=== PATIENT | male | born 1960 | race Caucasian/White ===

== ENCOUNTER 2017-06-06 02:39 | Emergency (ER) | payer MEDICARE ==
--- OUTSIDE RECORDS SUMMARY | 2017-06-06 02:42 | XMS | Clinical Summary ---
:1960 Author Organization [facility] Address [address] [place] [address] Phone Care Team Providers Name Role Phone , Primary Care Provider Unavailable Allergies Not on File Current Medications Not on file Active Problems Not on file Social History Tobacco Use Types Packs/Day Years Used Date Never Assessed Sex Assigned at Date Recorded Not on file Last Filed Vital Signs Not on file Plan of Treatment Not on file Results Not on filefrom Last 3 Months
[2017-06-06] MEDS ORDERED: Acetaminophen 500 MG TAB ONE (03:04)
--- NOTE | 2017-06-06 08:07 | CT ---
PRELIMINARY REPORT/[facility]/EMERGENCY AFTER HOURS PROCEDURE: EXAM: CT Head Without Intravenous Contrast EXAM DATE/TIME: Exam ordered 06/06/2017 3:10 AM CLINICAL HISTORY: 57 years old, male; Injury or trauma; Fall; Initial encounter; Abrasion; Not specified; Patient HX: Er valarie; M 57 presents to ed following a fall at 0115 while he was trying to get into bed, states t hat he hit the top of his head and denies loc. States that his back and head both hurt. H/o copd, bi polar and HTN. Not on blood thinners. Nkma. Denies any recent illnesses. TECHNIQUE: Axial computed tomography images of the head/brain without intravenous contrast. COMPARISON: No relevant prior studies available. FINDINGS: Brain: Normal. No hemorrhage. No significant white matter disease. No edema. Ventricles: Normal. No ventriculomegaly. Bones/joints: Normal. No acute fracture. Soft tissues: Normal. Sinuses: Unremarkable as visualized. No acute sinusitis. Mastoid air cells: Unremarkable as visualized. No mastoid effusion. IMPRESSION: No acute intracranial hemorrhage. Thank you for allowing us to participate in the care of your patient. Dictated and Authenticated by: Jose Sexton MD 06/06/2017 3:35 AM Central Time ([place] \T\ Mark) FINAL REPORT CT BRAIN WITHOUT CONTRAST: I agree with the preliminary report given by Dr. Jose Sexton of [facility]. Comparison is made with the exam of 11/29/16. No CT evidence of acute intracranial process is identified. POS: [facility]
== END 2017-06-06 03:54 | disposition home or self-care (01) ==
LOC: ERS 02:39
DX: S00.03XA Contusion of scalp, initial encounter (principal); M81.0 Age-related osteoporosis without current pathological fracture; E78.5 Hyperlipidemia, unspecified; J44.9 Chronic obstructive pulmonary disease, unspecified; I10 Essential (primary) hypertension; F41.9 Anxiety disorder, unspecified; F25.0 Schizoaffective disorder, bipolar type; F17.210 Nicotine dependence, cigarettes, uncomplicated; W18.09XA Striking against other object with subsequent fall, initial encounter
CPT/HCPCS: 70450

== ENCOUNTER 2017-10-09 23:45 | Emergency (ER) | payer MEDICARE ==
[2017-10-09] MEDS ORDERED: Ibuprofen 800 MG TAB ONE (23:54)
--- NOTE | 2017-10-10 07:57 | RAD ---
RIGHT HAND 3 VIEWS: Date: 10/09/17 HISTORY: Trauma, right hand pain. FINDINGS/IMPRESSION: Comparison made with exam of 02/22/11. An old, healed fracture of the proximal phalanx of the fifth digit is seen. No acute fracture or disl ocation is identified. POS: [facility]
== END 2017-10-10 00:49 | disposition home or self-care (01) ==
LOC: ERS 23:45
DX: S60.221A Contusion of right hand, initial encounter (principal); I10 Essential (primary) hypertension; E78.5 Hyperlipidemia, unspecified; J44.9 Chronic obstructive pulmonary disease, unspecified; F41.9 Anxiety disorder, unspecified; F31.9 Bipolar disorder, unspecified; F25.9 Schizoaffective disorder, unspecified; F17.210 Nicotine dependence, cigarettes, uncomplicated; W01.0XXA Fall on same level from slipping, tripping and stumbling without subsequent striking against object, initial encounter

== ENCOUNTER 2017-11-12 10:40 | Observation (INO) | payer MEDICARE ==
[~2017-11-12 10:40] MED LIST: ISOVUE-370 76%-LOCM 1 ML ONE
[2017-11-12 12:11] LABS: #Eosinphils 0.5 thou/uL (0.0-0.7); #Lymphocytes 1.3 thou/uL (1.20-3.40); %Basophils 0.1 % (0.0-1.0); %Eosinophils 3.6 % (0.0-10.0); %Neutrophils 78.3 % (42.0-75.0); Hemoglobin 12.6 g/dL (14.0-18.0); Mean Corpuscular HGB CONC 32.8 g/dL (32.0-36.0); Mean Corpuscular Hemoglobin 28.6 pg (27.0-31.0); Mean Corpuscular Volume 87.2 fl (80.0-94.0); Mean Platelet Volume 8.4 fL (7.4-10.4); Platelet Count 211 thou/uL (130-400); RBC Distribution Width 14.3 % (11.5-14.5); Red Blood Cell (RBC) Count 4.41 mill/uL (4.70-6.10); White Blood Cell (WBC) Count 12.7 thou/uL (4.8-10.8)
[2017-11-12 12:34] LABS: ALT (SGPT) 51 U/L (8-55); AST (SGOT) 83 U/L (5-34); Albumin 3.9 g/dL (3.5-5.0); Alkaline Phosphatase 108 U/L (40-150); Anion Gap 12 mmol/L (10-20); BUN (Urea Nitrogen) 13 mg/dL (8.4-25.7); Bilirubin, Total 0.3 mg/dL (0.2-1.2); Calc. Creatinine Clearance 0 mL/min (70-130); Calcium 9.1 mg/dL (7.8-10.44); Carbon Dioxide 19 mmol/L (22-29); Chloride 109 mmol/L (98-107); Estimated GFR-MDRD 51; Globulin 3.4 g/dL (2.4-3.5); Glucose 75 mg/dL (70-105); Protein, Total 7.3 g/dL (6.0-8.3); Sodium 135 mmol/L (136-145)
[2017-11-12 12:36] LABS: CKMB 6.1 ng/mL (0-6.6); Troponin I Less than 0.010 ng/mL (< 0.028)
--- NOTE | 2017-11-12 13:06 | CT ---
CT ABDOMEN AND PELVIS: 11/12/2017 PROVIDED CLINICAL HISTORY: Abdominal pain. COMPARISON: 12/02/2015 FINDINGS: The visualized lung bases are free of significant opacity. The liver, spleen, pancreas, kidneys, and adrenal glands demonstrate an unremarkable CT appearance, w ith the exception of bilateral nephrolithiasis without obstruction, appearing similar to the prior st udy. The right renal pelvic calculus on the prior study appears to have migrated to the inferior yara e of the right kidney. There is conspicuous colonic fecal retention in the right colon. There is no evidence for bowel obst ruction. There is no inflammatory fat stranding, free fluid, or free air apparent. The appendix jean ears normal. Vascular calcifications are noted. Nonspecific conspicuous distention of the urinary bladder. Post surgical changes of the left pelvis are again noted. The osseous structures demonstrate no conc erning lytic or blastic lesions. IMPRESSION: 1. Bilateral nonobstructing nephrolithiasis. 2. Findings suggestive of constipation. POS: [facility]
--- NOTE | 2017-11-12 13:35 | RAD ---
PORTABLE CHEST: HISTORY: Weakness. Falling. COMPARISON: Chest film from 01/07/2016. FINDINGS: There is hazy density in the left mid lung and in the left lower lung, which could represent changes of early inflammatory infiltrate. These densities are new when compared to a prior exam. There is evidence of an old rib fracture involving the lateral left seventh rib, which is a stable fi nding. Probable old fracture involving the posterolateral left sixth rib as well. No acute fracture identified. IMPRESSION: Questionable areas of new infiltrate in the left lung. Correlate clinically regarding pneumonia, and recommend followup. POS: [facility]
[2017-11-12] MEDS ORDERED: Ketorolac Tromethamine 30 MG/ML VIAL ONE (14:23)
[2017-11-12 14:43] LABS: Bilirubin Negative (Negative); Blood, Urine Small (Negative); Clarity CLEAR (Clear); Glucose, Urine (Dipstick) Negative (Negative); Leukocyte Negative (Negative); Nitrite Negative (Negative); Protein, Urine (Dipstick) Negative (Neg-Trace); Specific Gravity, Urine 1.027 (1.002-1.036); pH, Urine 6.5 (5.0-9.0)
[2017-11-12 14:45] LABS: Bacteria/HPF None Seen HPF (None Seen); Hyaline Casts/LPF 0-3 HYALINE CAST LPF (0-3 Hyaline); Squamous Epithelial 0-3 HPF (0-3); WBC/HPF 0-3 HPF (0-3)
[2017-11-12 14:51] LABS: Cocaine Metabolite Screen Detected (NotDetected); Medtox Reader # READER 1; Phencyclidine (PCP) Not Detected (NotDetected); THC/Cannabinoid Screen Not Detected (NotDetected)
[2017-11-12 14:52] LABS: Amphetamine Not Detected (NotDetected); Barbiturates Screen Not Detected (NotDetected); Benzodiazepine Screen Detected (NotDetected); Medtox Control Line Valid? VALID (VALID); Methadone Not Detected (NotDetected); Methamphetamine Not Detected (NotDetected); Opiate Screen Not Detected (NotDetected); Oxycodone Screen Not Detected (NotDetected); Tricyclic Screen Detected (NotDetected)
--- NOTE | 2017-11-12 14:54 | CT ---
NONCONTRAST HEAD CT: Date: 11/12/17 HISTORY: Multiple falls over the past 3 days. COMPARISON: 06/06/17. TECHNIQUE: Noncontrast head CT is performed from skull base to skull vertex. FINDINGS: There is residual contrast in the intracranial arteries due to recent contrast administration. This l imits evaluation for subarachnoid hemorrhage. No obvious extra-axial hematoma. No definite parenchyma l hemorrhage. No midline shift. Basilar cisterns are patent. Age-appropriate atrophy. Cortical herbert-white matter differentiation is preserved. Ventricles and sulci are patent and symmetric. Adequate aeration of the sinuses and mastoid air cells. Calvarium is intact. IMPRESSION: No intracranial post-traumatic sequelae. POS: [facility]
[2017-11-12] MEDS ORDERED: Ondansetron HCl/PF 4 MG/2 ML Vial IVP PRN (18:29)
[2017-11-12] MEDS ORDERED: Ondansetron ODT 4 MG TAB SL PRN (18:29)
[2017-11-12] MEDS ORDERED: Acetaminophen 325 MG TAB PO PRN (18:29)
[2017-11-12 19:23] LABS: #Eosinphils 0.3 thou/uL (0.0-0.7); #Lymphocytes 1.7 thou/uL (1.20-3.40); #Neutrophils 7.1 thou/uL (1.40-6.50); %Basophils 0.5 % (0.0-1.0); %Eosinophils 3.1 % (0.0-10.0); %Lymphocytes 16.6 % (21.0-51.0); %Monocytes 9.9 % (0.0-10.0); Hemoglobin 13.3 g/dL (14.0-18.0); Mean Corpuscular HGB CONC 31.9 g/dL (32.0-36.0); Mean Corpuscular Hemoglobin 28.4 pg (27.0-31.0); Mean Platelet Volume 8.5 fL (7.4-10.4); Platelet Count 221 thou/uL (130-400); RBC Distribution Width 14.4 % (11.5-14.5); Red Blood Cell (RBC) Count 4.69 mill/uL (4.70-6.10); White Blood Cell (WBC) Count 10.1 thou/uL (4.8-10.8)
[2017-11-12 19:26] VITALS: BMI 28.3
[2017-11-12] MEDS: Sodium Chloride 0.9% 1,000 ML IV SCH (19:45)
[2017-11-12] MEDS: Ketorolac Tromethamine 30 MG/ML VIAL IVP PRN (19:45)
[2017-11-12 19:47] LABS: ALT (SGPT) 53 U/L (8-55); AST (SGOT) 91 U/L (5-34); Albumin 4.1 g/dL (3.5-5.0); Alkaline Phosphatase 120 U/L (40-150); Anion Gap 11 mmol/L (10-20); BUN (Urea Nitrogen) 10 mg/dL (8.4-25.7); Bilirubin, Total 0.4 mg/dL (0.2-1.2); Calc. Creatinine Clearance 66 mL/min (70-130); Calcium 8.9 mg/dL (7.8-10.44); Carbon Dioxide 20 mmol/L (22-29); Chloride 111 mmol/L (98-107); Estimated GFR-MDRD 55; Globulin 3.5 g/dL (2.4-3.5); Glucose 69 mg/dL (70-105); Potassium 4.2 mmol/L (3.5-5.1); Protein, Total 7.6 g/dL (6.0-8.3); Sodium 138 mmol/L (136-145)
--- NOTE | 2017-11-12 21:59 | HP ---
MARC Morris dictating H&P for Tj Conroy MD. REASON FOR ADMISSION: Weakness and back pain. HISTORY OF PRESENT ILLNESS: This is a pleasant 57-year-old gentleman with a history of drug abuse, p resents with episode of altered level of consciousness, back pain, and lower extremity weakness. All of his tests including brain CT, abdominal and pelvis CT, and chest x-ray were all normal. A urine drug screen however showed cocaine. It was also positive for benzodiazepine; however, he does not ge t that from our office ? The patient denies any chest, arm, or back pain. He also denies any PND, orthopnea, or palpitations. He is known to have a history of back pain and has had episodes where he has been admitted to the ostal where he could not walk; however, within 24 hours, he would miraculously walk again. PAST MEDICAL HISTORY: 1. Chronic back pain. 2. History of mental disorder being in [facility] before. 3. Polysubstance abuse. 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 5. History of kidney stones. 6. COPD. 7. 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 9. Hyperlipidemia. 10. Hypertension. 11. History of anxiety and bipolar disorder. PAST SURGICAL HISTORY: 1. Left shoulder surgery in the past. 2. Left toe and left testicular tumors removed in the past. 3. Pelvic and sacral fractures. 4. Lithotripsy x2. SOCIAL HISTORY: He is . He has a history of crack cocaine in the past. Occasional alcohol u se. He is a former smoke. He is unemployed. He is . He is disabled. FAMILY HISTORY: Noncontributory. REVIEW OF SYSTEMS: General: Admits to weakness and fatigue. No fever or chills. HEENT: No diplop ia, amaurosis fugax, tinnitus, sore throat, or hoarseness. Cardiovascular: No chest, arm, or back p ain. Pulmonary: No cough or hemoptysis. Gastrointestinal: No GI bleed, constipation, or diarrhea. Genitourinary: No dysuria, nocturia, oliguria, or polyuria. Endocrine: No polyphagia, polydipsia , or heat or cold intolerance. Musculoskeletal: Admits to arthralgias, back pain, and lower extremi ty weakness. Unable to walk. No lupus or myopathy. Neurologic: No history of TIA or seizure. All other systems are negative. PHYSICAL EXAMINATION: GENERAL: Pleasant gentleman who appears to be in no acute distress. He is edentulous. VITAL SIGNS: Stable. NECK: Supple with no increased JVP or carotid bruit. Carotid had good upstroke with no thyromegaly. COR: Regular rate and rhythm. CHEST: Symmetrical. Clear to auscultation and percussion. ABDOMEN: Soft and nontender with normoactive bowel sounds. No bruit or organomegaly. EXTREMITIES: No edema or cyanosis. Palpable pedal pulses. SKIN: There is no evidence of ulcer, lesion, or rash. NEUROLOGIC: He is awake; alert; and oriented to person, place, and time. He does have good upper extremity strength; however, on his lower extremity, he lifts both of his leg s up with facial grimacing. LABORATORY DATA: Showed a CBC to have a white blood cell 12.7, H&H of 12.6 and 38.5. His sodium is 135, creatinine 1.42. His urine is unremarkable. His chest x-ray is possible infiltrate. ASSESSMENT: 1. Abnormal chest x-ray; however, has no fever. His lungs were clear and has no upper respiratory s ymptoms. 2. History of cocaine abuse. 3. Chronic back pain. 4. Lower extremity weakness. 5. Bipolar. 6. Multiple medical problems. PLAN: 1. We will keep on observation and as Physical Therapy to see the patient in consultation. 2. We will give Toradol 30 mg IV q.6 hours p.r.n. pain. 3. We will check routine vital signs. 4. Put on controlled fat diet. 5. We will find home medications and resume accordingly. 6. Follow up with CBC, CMP, and chest x-ray in the morning. We will not give any antibiotics right now as the patient has no symptoms; however, we will confirm tomorrow with testing.
[2017-11-13] MEDS: Ketorolac Tromethamine 30 MG/ML VIAL IVP PRN ×4 (01:59→20:32)
[2017-11-13] MEDS: Sodium Chloride 0.9% 1,000 ML IV SCH (01:59)
--- NOTE | 2017-11-13 12:07 | RAD ---
RIGHT HIP 2 VIEWS: HISTORY: Inability to ambulate. FINDINGS/IMPRESSION: There are mild degenerative changes in the right hip joint. No fracture, dislocation, or bony destru ction is seen. There is an old fracture involving the left inferior pubic ramus and postop changes i n the left pubis, left acetabulum, and the left SI region. POS: [facility]
--- NOTE | 2017-11-13 12:11 | RAD ---
LEFT HIP TWO VIEWS: History: Hip pain. FINDINGS: There are post-operative changes of the hip. There are plates and screws fixing an old fracture along the central acetabulum left superior pubic ramus in place. There is also an old healed inferior pubi c rami fracture. Surgical screws cross the left SI joint. The joint space itself is relatively well p reserved without significant arthritic change. IMPRESSION: Suggestion of some bony demineralization with post-operative changes of the left side of the pelvis. No definite acute process. No significant joint space narrowing. POS: [facility]
--- NOTE | 2017-11-13 12:34 | RAD ---
CHEST TWO VIEWS: HISTORY: Followup of a left lung infiltrate. COMPARISON: 11/12/2017 FINDINGS: Heart size is within normal limits. A left perihilar and upper lobe interstitial infiltrate is simil ar to the prior exam. The left lower lobe parenchymal changes appear to have resolved. The right ayaan ng is clear. IMPRESSION: Persistent left perihilar infiltrate, fairly similar, considering differences in technique. POS: [facility]
--- NOTE | 2017-11-13 19:22 | CT ---
CT LUMBAR SPINE WITHOUT CONTRAST 11/13/17 HISTORY: Evaluate for spinal stenosis. Leg pain for multiple years. COMPARISON: Lumbar spine radiographs from 2016. FINDINGS: There is a type IIb lumbosacral transitional vertebra. This will be termed L5 for the purposes of thi s exam. There are two threaded cannulated screws through the left SI joint through S1. No acute fract ure or malalignment. The neural foramina and spinal canal are patent. No spinal canal narrowing. No significant neural for aminal narrowing. Mild vascular calcifications of the aorta. There are bilateral renal calculi. The paraspinal musculat ure is symmetric. Adrenal glands are unremarkable. IMPRESSION: 1. 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 2. Satisfactory appearance of two threaded cannulated screws through the left SI joint. 3. Incomplete evaluation of hardware along the left superior pubic ramus seen on the rules examiner radio graph extending to the anterior column. 4. Bilateral renal calculi. POS: [facility]
--- NOTE | 2017-11-14 08:36 | PRG ---
DATE OF SERVICE: 11/14/2017 SUBJECTIVE: The patient had a good night; however, yesterday he did not do very good with therapy. He is now coughing. He does not have any fever; however, his chest x-ray did show an infiltrate. PHYSICAL EXAMINATION: GENERAL: Upon evaluation is awake, alert, and oriented to person, place and time. VITAL SIGNS: Blood pressure 140/70, pulse 90, respiration 20. He is afebrile. NECK: Supple. No JVD or carotid bruit. Carotid upstroke, no thyromegaly. COR: Regular rate and rhythm. CHEST: He did have some upper lobe rhonchi with left lower lobe crackles. ABDOMEN: Soft, nontender with normoactive bowel sounds. There is no bruit or organomegaly. EXTREMITIES: No edema or cyanosis. He had palpable pedal pulses. SKIN: There is no evidence of ulcer, lesion or rash. NEUROLOGIC: He is awake, alert, and oriented to person, place and time; however, he does have a good upper extremity strength, but he does have poor lower extremity strength. ASSESSMENT: 1. Possible pneumonia. 2. Back pain and hip pain with no significant abnormalities based on his x-rays; however. 3. He was found to have incidental kidney stones which could explain for I guess his back pain. 4. History of bipolar. 5. Anxiety. 6. History of cocaine use. 7. Deconditioning. PLAN: We will start antibiotics for pneumonia. We will also do breathing treatments every 4 hours. We will also check a followup with CBC and CMP in the morning. We will have embedded case manager to work on rehab as that was suggested by physical therapy. We will also have Urology see the patient for his k bhanuney stone to see if that would be the cause of his back pain.
[2017-11-14] MEDS: Ketorolac Tromethamine 30 MG/ML VIAL IVP PRN ×2 (09:20→15:24)
[2017-11-14] MEDS: cefTRIAXone\\ROCEPHIN 1 GM, Syringe 0.4 ML in Sterile Water 9.6 ML SLOW IVP SCH (10:40)
[2017-11-14] MEDS: Albuterol Sulfate 2.5 mg/3 ml Neb NEB SCH ×4 (11:07→22:55)
--- NOTE | 2017-11-14 17:20 | CON ---
DATE OF CONSULTATION: 11/14/2017 NEUROLOGY CONSULTATION CONSULTING PHYSICIAN: Tj Conroy M.D. IMPRESSION: Left calf atrophy and subjective weakness with relatively brisk reflexes suggesting the possibility of motor neuron disease. PLAN: The patient can be discharged to be seen as an outpatient in the office for EMG and nerve cond uction studies. HISTORY OF PRESENT ILLNESS: Mr. Polanco is a 57-year-old man with a past history of hypertension, hyper lipidemia, low back pain and cocaine abuse. He came in with a 3-week history of increased weakness i n his left leg. This made it difficult for him to walk. He reportedly fell on several occasions and could get up. There is no associated tingling or numbness in the left leg. He has not noticed any loss of bowel or bladder control. He does not note any weakness on the right. He did not really jean reciate any weakness in the upper extremities or difficulty swallowing or talking. He had a CT scan of the brain done, which was unremarkable. CT of the lumbar spine did not show any significant felipe inal or central canal stenosis. His lab work was otherwise unremarkable. PAST MEDICAL HISTORY: Otherwise, negative. FAMILY HISTORY: Noncontributory. SOCIAL HISTORY: Positive for cocaine use. MEDICATION LIST: Reviewed. REVIEW OF SYSTEMS: Also positive for muscle cramping. PHYSICAL EXAMINATION: GENERAL: He is a thin, middle-aged man who appears older than his age. HEENT: Pupils are equal and reactive. Conjunctivae are clear. Oropharynx is clear. NECK: Supple. EXTREMITIES: No cyanosis, clubbing or edema. NEUROLOGIC: He is alert and cooperative. Speech is fluent and clear. Cranial nerves appear to be i ntact. No tongue fasciculation was noted. Motor exam showed some patchy weakness in the upper extre mities involving the left deltoid and right biceps. The lower extremities were notable for calf atro phy and some questionable fasciculations. He had difficulty with plantar flexion on the left. Sensa tion was intact. Reflexes were 3+ at the knees and 2+ at the ankles. Plantar responses appear to be downgoing. He could bring himself to a standing position and maintain his balance. Cerebellar test ing showed normal [id number] and rapid alternating movements. IMAGING: Reviewed. SUMMARY: This is a middle-aged man with some gradual progressive weakness in his left leg that is mo st consistent with possible upper motor neuron problems. His CT does not reveal any evidence of a st roke. I would like to proceed with further testing as an outpatient to try to get to the etiology.
[2017-11-15] MEDS: Ketorolac Tromethamine 30 MG/ML VIAL IVP PRN (00:21)
[2017-11-15] MEDS: Albuterol Sulfate 2.5 mg/3 ml Neb NEB SCH ×5 (02:42→18:31)
[2017-11-15 04:30] LABS: #Eosinphils 0.4 thou/uL (0.0-0.7); #Lymphocytes 1.5 thou/uL (1.20-3.40); #Monocytes 0.9 thou/uL (0.11-0.59); #Neutrophils 5.6 thou/uL (1.40-6.50); %Basophils 0.1 % (0.0-1.0); %Eosinophils 4.4 % (0.0-10.0); %Lymphocytes 18.2 % (21.0-51.0); %Monocytes 10.8 % (0.0-10.0); %Neutrophils 66.6 % (42.0-75.0); Hemoglobin 12.1 g/dL (14.0-18.0); Mean Corpuscular HGB CONC 33.5 g/dL (32.0-36.0); Mean Corpuscular Hemoglobin 28.7 pg (27.0-31.0); Mean Corpuscular Volume 85.8 fl (80.0-94.0); Mean Platelet Volume 8.1 fL (7.4-10.4); Platelet Count 208 thou/uL (130-400); RBC Distribution Width 14.3 % (11.5-14.5); Red Blood Cell (RBC) Count 4.21 mill/uL (4.70-6.10); White Blood Cell (WBC) Count 8.4 thou/uL (4.8-10.8)
[2017-11-15 04:40] LABS: ALT (SGPT) 32 U/L (8-55); AST (SGOT) 30 U/L (5-34); Albumin 3.4 g/dL (3.5-5.0); Alkaline Phosphatase 104 U/L (40-150); Anion Gap 12 mmol/L (10-20); BUN (Urea Nitrogen) 12 mg/dL (8.4-25.7); Bilirubin, Total 0.3 mg/dL (0.2-1.2); Calc. Creatinine Clearance 68 mL/min (70-130); Calcium 9.1 mg/dL (7.8-10.44); Carbon Dioxide 21 mmol/L (22-29); Chloride 110 mmol/L (98-107); Estimated GFR-MDRD 57; Globulin 3.1 g/dL (2.4-3.5); Glucose 94 mg/dL (70-105); Protein, Total 6.5 g/dL (6.0-8.3); Sodium 139 mmol/L (136-145)
[2017-11-15] MEDS: cefTRIAXone\\ROCEPHIN 1 GM, Syringe 0.4 ML in Sterile Water 9.6 ML SLOW IVP SCH (08:18)
[2017-11-15] MEDS ORDERED: traMADol HCl 50 MG TAB PO PRN (08:24)
[2017-11-15 11:09] VITALS: TEMP 98.3
[2017-11-15] MEDS ORDERED: Ibuprofen 800 MG TAB PO PRN (12:15)
[2017-11-15 16:52] VITALS: BP 144/98
--- NOTE | 2017-11-16 15:03 | EKG ---
Test Reason : Blood Pressure : / mmHG Vent. Rate : 079 BPM Atrial Rate : 079 BPM P-R Int : 172 ms QRS Dur : 142 ms QT Int : 438 ms P-R-T Axes : 058 -04 041 degrees QTc Int : 502 ms Normal sinus rhythm Right bundle branch block Abnormal ECG Confirmed by JOAQUIM REYES ([id number]), editor map DEBI DOVE ([id number]) on 11/16/2017 3:02:37 PM Referred By: Confirmed By:JOAQUIM REYES
== END 2017-11-15 18:43 ==
LOC: ERS 10:40 → T4-B 16:03
PROVIDERS: ADMIT Specialist; ATTEND Specialist
DX: M62.562 Muscle wasting and atrophy, not elsewhere classified, left lower leg (principal); R53.1 Weakness; I10 Essential (primary) hypertension; E78.5 Hyperlipidemia, unspecified; F14.10 Cocaine abuse, uncomplicated; F31.9 Bipolar disorder, unspecified; F41.9 Anxiety disorder, unspecified; G89.29 Other chronic pain; M54.5 Low back pain; J44.9 Chronic obstructive pulmonary disease, unspecified; Z98.890 Other specified postprocedural states; Z87.891 Personal history of nicotine dependence
CPT/HCPCS: 70450; 71045; 71046; 72131; 73502 ×2; 74177; 80053 ×3; 80306; 82140; 82553; 82962 ×2; 83605; 84484; 85025 ×3; 85652; 87045; 87046; 87449; 87899 ×2; 93005; 94640 ×3; 96361 ×3; 96365; 96375 ×2; 96376 ×4; 97110; 97116; 97139; 97530; 99285; G0378 ×2; G8978; G8979; 36415; 36416; 81003; 81015; 96374; A4216; J0696; J1885; J1956; J7611

== ENCOUNTER 2017-11-16 10:19 | Emergency (ER) | payer MEDICARE ==
[2017-11-16] MEDS ORDERED: Lidocaine 2% Jelly 5 ML TUBE ONE (11:34)
--- NOTE | 2017-11-17 18:45 | CON ---
DATE OF CONSULTATION: 11/16/2017 REASON FOR CONSULTATION: Unable to place Harry catheter. HISTORY OF PRESENT ILLNESS: Mr. Polanco is a 57-year-old gentleman who I have seen in the past for ston e disease. He has a history of ureteroscopy in 2016 and ESWL prior to that. He also has a history o f left orchiectomy for trauma at the age of 14. He was most recently seen in our office for some rig ht-sided scrotal discomfort. He is currently in a rehab facility for physical therapy after treatmen for physical therapy. He states he has not been able to void since last night. Attempts were made to place a Harry catheter at his rehab facility and these attempts were unsuccessful. Attempts were also made in the emergency room at [facility]. Again, these were unsuccessful. He denies prior urologic voiding symptoms. PAST MEDICAL HISTORY: Pelvic fracture requiring surgical repair, chronic kidney disease, kidney ston es, COPD, and sarcoma. CURRENT MEDICATIONS: Include BuSpar, Prozac, and Symbicort. ALLERGIES: No known drug allergies. SOCIAL HISTORY: He is a smoker averaging a pack a day. Alcohol, denies excessive alcohol use. REVIEW OF SYSTEMS: Respiratory: No shortness of breath. Cardiovascular: No chest pain or palpitat ions. Gastrointestinal: Chronic constipation, diarrhea. Neurologic: Denies stroke. PHYSICAL EXAMINATION: GENERAL: He is awake, alert, he is in no distress at this time. HEENT: Normocephalic, atraumatic. NECK: Supple, without masses. CHEST: Clear to auscultation. CARDIOVASCULAR: No murmurs auscultated. ABDOMEN: Soft, nontender, no palpable masses. Liver and spleen are palpable. EXTREMITIES: No edema. The patient voided prior to being seen by me. A bladder scan was performed with a residual of 500 mL . The patient was sterilely prepped. Flexible cystoscope was passed into the bladder. There is narrow ing in the urethra without obvious stricture disease. The scope could be passed into the bladder. G uidewire was passed through the scope and a [place] ira tip catheter was passed over the guidewire and th e balloon was inflated in the bladder. The bladder drained clear yellow urine. IMPRESSION: Mr. Polanco is a 57-year-old gentleman with urinary retention of unclear etiology. He is a ctually able to void before I was able to see him in the emergency room; however, did not empty compl etely and for that reason, the catheter was placed. On cystoscopic examination, he has a narrowing o f the urethra more consistent with edema than a stricture. There is no evidence of malignancy. A Fo pam catheter was then placed. RECOMMENDATIONS: Leave Harry catheter in place for approximately 1 week and remove for voiding trial .
== END 2017-11-16 14:14 | disposition home or self-care (01) ==
LOC: ERS 10:19
DX: R33.9 Retention of urine, unspecified (principal); M81.0 Age-related osteoporosis without current pathological fracture; I10 Essential (primary) hypertension; E78.5 Hyperlipidemia, unspecified; J44.9 Chronic obstructive pulmonary disease, unspecified; F41.9 Anxiety disorder, unspecified; F31.9 Bipolar disorder, unspecified; F25.9 Schizoaffective disorder, unspecified; F17.210 Nicotine dependence, cigarettes, uncomplicated; Z87.442 Personal history of urinary calculi
CPT/HCPCS: 51703

== ENCOUNTER 2017-12-19 08:37 | Inpatient (IN) | payer MEDICARE ==
[2017-12-19 09:17] LABS: #Eosinphils 0.3 thou/uL (0.0-0.7); #Lymphocytes 1.7 thou/uL (1.20-3.40); #Monocytes 0.9 thou/uL (0.11-0.59); #Neutrophils 6.4 thou/uL (1.40-6.50); %Basophils 0.5 % (0.0-1.0); %Eosinophils 3.5 % (0.0-10.0); %Lymphocytes 18.1 % (21.0-51.0); %Neutrophils 67.9 % (42.0-75.0); Hemoglobin 13.5 g/dL (14.0-18.0); Mean Corpuscular HGB CONC 33.2 g/dL (32.0-36.0); Mean Corpuscular Volume 87.4 fl (80.0-94.0); Mean Platelet Volume 8.4 fL (7.4-10.4); Platelet Count 192 thou/uL (130-400); RBC Distribution Width 14.1 % (11.5-14.5); Red Blood Cell (RBC) Count 4.66 mill/uL (4.70-6.10); White Blood Cell (WBC) Count 9.4 thou/uL (4.8-10.8)
--- NOTE | 2017-12-19 09:35 | CT ---
CT BRAIN WITHOUT CONTRAST: Date: 12/19/17 HISTORY: Fall. No loss of consciousness. Headache. Neck pain. FINDINGS: Comparison made with exam of 11/12/17. No evidence of hemorrhage, midline shift, or abnormal extra-axial fluid collections are seen. A focal area of decreased attenuation is seen in the left cerebellar hemisphere. It cannot be said with cert ainty if this is due to artifact, mass, or infarction. The ventricular size is normal and the basila r cisterns are patent. The bony calvarium is intact. The visualized paranasal sinuses and mastoid air cells are well aerated. IMPRESSION: Focal hypodensity in the left cerebellar hemisphere as discussed above. Further evaluation with MRI i s recommended. This study was interpreted in consultation with Dr. Jorge Luis Wakefield (neuroradiologist), who concurs. POS: [facility]
--- NOTE | 2017-12-19 09:36 | CT ---
CT CERVICAL SPINE: Date: 12/19/17 HISTORY: Patient with fall, tripped over curb, with neck pain. TECHNIQUE: Axial images are obtained with coronal and sagittal reconstructions. FINDINGS: There is marked atherosclerotic calcification of the left common carotid artery. Otherwise, soft tiss ue neck is unremarkable. Osseous structures demonstrate no evidence of acute fractures. Disc spaces and vertebra are unremarka ble. Facets unremarkable. No evidence of acute cervical spine fractures seen. The odontoid is unremar kable. IMPRESSION: Normal CT cervical spine. POS: [facility]
[2017-12-19 09:37] LABS: ALT (SGPT) 18 U/L (8-55); AST (SGOT) 22 U/L (5-34); Albumin 4.2 g/dL (3.5-5.0); Alkaline Phosphatase 104 U/L (40-150); Anion Gap 11 mmol/L (10-20); BUN (Urea Nitrogen) 24 mg/dL (8.4-25.7); Bilirubin, Total 0.3 mg/dL (0.2-1.2); Calc. Creatinine Clearance 0 mL/min (70-130); Calcium 9.1 mg/dL (7.8-10.44); Carbon Dioxide 21 mmol/L (22-29); Chloride 110 mmol/L (98-107); Estimated GFR-MDRD 37; Globulin 3.1 g/dL (2.4-3.5); Glucose 70 mg/dL (70-105); Potassium 4.3 mmol/L (3.5-5.1); Protein, Total 7.3 g/dL (6.0-8.3); Sodium 138 mmol/L (136-145)
--- NOTE | 2017-12-19 09:49 | RAD ---
TWO VIEWS OF THE LEFT FEMUR: COMPARISON: None. HISTORY: Fall from standing after tripping over a curb with left leg pain. FINDINGS: Two views of the left femur show no evidence of acute fracture or dislocation. There is hardware in the left hemipelvis. No degenerative change is seen in the hip or knee. IMPRESSION: No evidence of acute osseous abnormality. POS: [facility]
--- NOTE | 2017-12-19 09:51 | RAD ---
AP VIEW PELVIS: HISTORY: Fall and pain in pelvis. The patient tripped over a curb. FINDINGS: AP view pelvis is obtained. Left SI joint transosseous and joint screws are in place. Left pelvic p late and screws from old trauma seen. This is unchanged since the previous exam from 06/30/15. No evidence of acute pelvic fractures or bony lesions seen. IMPRESSION: Postsurgical changes with no evidence of acute pelvic fractures or lesions seen. POS: [facility]
--- NOTE | 2017-12-19 09:53 | RAD ---
THREE VIEWS LUMBAR SPINE: HISTORY: Back pain. The patient tripped over a curb status post fall. FINDINGS: AP, lateral, and coned-down views of the lumbar spine are obtained. There are 4 [id number] lumbar vertebrae with a transitional L5 vertebra. There is mild anteroli sthesis of L5 on S1. The lumbar vertebrae demonstrate no evidence of fractures or bony lesions. IMPRESSION: Four Lumbar-type vertebrae with transitional L5 vertebra. No evidence of acute fracture is seen. POS: [facility]
[2017-12-19] MEDS ORDERED: Acetaminophen 325 MG TAB ONE (10:32)
[2017-12-19] MEDS ORDERED: Acetaminophen 325 MG TAB PO PRN (11:26)
[2017-12-19] MEDS ORDERED: Ondansetron ODT 4 MG TAB SL PRN (11:26)
[2017-12-19] MEDS ORDERED: Ondansetron HCl/PF 4 MG/2 ML Vial IVP PRN (11:26)
[2017-12-19 11:30] VITALS: BMI 28.2
[2017-12-19] MEDS: Pregabalin 50 MG CAP PO SCH ×2 (14:10→21:21)
[2017-12-19] MEDS: traMADol HCl 50 MG TAB PO PRN ×2 (14:10→17:57)
[2017-12-19] MEDS: Cyclobenzaprine 10 MG TAB PO SCH ×2 (14:11→21:23)
--- NOTE | 2017-12-19 14:32 | HP ---
REASON FOR ADMISSION: Fall. HISTORY OF PRESENT ILLNESS: This is a 57-year-old gentleman with history of multiple medical problem s to include drug abuse as well as chronic back pain and multiple admissions to psychiatric facilitie s. He presents after he fell 2 times in the shower and hit his head. Upon arrival to the emergency room , he did have a CT of the head and this demonstrated focal hypodensity in the left cerebellar hemisph ere and MRI was read at that time. The patient is awake. He does have a slurred speech. He has equal hand grasp, toe wiggle. He does have lower extremity weakness. The patient denies any loss of consciousness after his fall. He beni es any chest, arm or back pain and also denies any syncopal or near syncopal episode. Physically, th e patient is being admitted for further evaluation and treatment. PAST MEDICAL HISTORY: 1. Chronic back pain with drug abuse in the past. 2. History of noncompliance. 3. History of anxiety disorder. 4. History of multiple admissions to the Psychiatric Unit. 5. 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 6. History of kidney stones. 7. COPD. 8. Sarcoma treated with radiation. 9. 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 10. Hypertension. 11. Hyperlipidemia. 12. Bipolar. PAST SURGICAL HISTORY: 1. Left shoulder surgery in the past. 2. Left toe and left testicular tumor removed in the past. 3. Pelvic and sacral fractures. 4. Lithotripsy x2. ALLERGIES: None. MEDICATIONS: 1. Coreg 6.25 mg b.i.d. 2. Lipitor 20 mg at bedtime. 3. BuSpar 10 mg q.6 hours. 4. Celebrex 400 mg every day. 5. Flexeril 10 mg t.i.d. 6. Vitamin D2 50,000 units ever week. 7. Uloric 40 mg every day. 8. Prozac 40 mg every day. 9. Breo 1 inhalation every day. 10. Gabapentin 600 mg b.i.d. 11. Hydroxyzine 25 mg at bedtime. 12. Lamictal 100 mg b.i.d. 13. Zyprexa 15 mg every day. 14. Lyrica 50 mg t.i.d. 15. Tamsulosin 0.4 mg every day. 16. Tramadol 200 mg every day. 17. Effexor 75 mg every day. SOCIAL HISTORY: He does admit to doing drugs at times. He does not drink alcohol. He does not smok e. FAMILY HISTORY: Noncontributory. REVIEW OF SYSTEMS: General: Admits to weakness, fatigue. No fever or chills. HEENT: No diplopia, amaurosis fugax, tinnitus, sore throat, or hoarseness. Cardiovascular: No chest, arm, or back pain. Pulmonary: No cough, or hemoptysis. Gastrointestinal: No GI bleed, constipation, diarrhea. [place] tourinary: No dysuria, nocturia, oliguria, or polyuria. Endocrine: No polyphagia, polydipsia, or h eat or cold intolerance. Musculoskeletal: Admits to arthralgias. No lupus or myopathy. Neurologic : See history of present illness. All systems are negative. PHYSICAL EXAMINATION: GENERAL: Pleasant gentleman who appears to be in no acute distress. He does have expressive aphasia . VITAL SIGNS: Blood pressure 140/70, pulse 60, respiration rate 18, he is afebrile. NECK: Supple with no increased JVP or carotid bruit. Carotid had good upstroke with no thyromegaly. COR: Regular rate and rhythm. CHEST: Symmetrical. Clear to auscultation and percussion. ABDOMEN: Soft, nontender, normoactive bowel sounds. No bruit or organomegaly. EXTREMITIES: No edema or cyanosis. Palpable pedal pulses. SKIN: There is no evidence of ulcerations, lesion, or rash. NEUROLOGIC: He is awake, alert, oriented to person, place, and time. LABORATORY DATA AND X-RAY FINDINGS: Hemoglobin and hematocrit is normal, white blood cell count is n ormal. His CMP is normal except for creatinine being slightly elevated at 1.88. His liver enzymes a re normal. I am waiting on his urine drug screen. His pelvis x-ray has no acute pelvic fracture. ASSESSMENT: 1. Fall. 2. Rule out cerebrovascular accident. 3. History of polysubstance abuse. 4. Chronic back pain. 5. Hypertension. 6. Hyperlipidemia. 7. Depression. 8. Anxiety. 9. Bipolar. PLAN: 1. We will resume his home medications. We will also consult Neurology to see the patient in consul tation. 2. I will go ahead and resume his tramadol ER only for pain. 3. We will follow up with a CMP in the morning. 4. We will also start physical therapy and occupational therapy. This is MARC Morris dictating for Dr. Tj Conroy.
--- NOTE | 2017-12-19 14:52 | MRI ---
PRE AND POSTCONTRAST ENHANCED MRI BRAIN: Date: 12/19/17 HISTORY: Cerebellar lesion. Confusion. TECHNIQUE: Pre and postcontrast enhanced MRI brain obtained. COMPARISON: Comparison made to previous MRI from 11/30/[address] from 12/19/17. FINDINGS: Multiplanar, multisequence pre and postcontrast enhanced MRI of brain obtained. Images demonstrate no evidence of intracranial masses, hemorrhages, strokes, or contusions. The area of concern noted on t he CT represents an area of artifact. No significant abnormality is seen in the left cerebellum. No e vidence of areas of diffusion restriction seen. IMPRESSION: Unremarkable pre and postcontrast enhanced MRI of brain. POS: [facility]
[2017-12-19] MEDS: busPIRone HCl 10 MG TAB PO SCH (17:54)
[2017-12-19] MEDS: Mometasone/Formoterol 120 PUFF INHALER INH SCH (20:01)
--- NOTE | 2017-12-19 20:39 | CON ---
DATE OF CONSULTATION: 12/19/2017 CONSULTING PHYSICIAN: Tj Conroy M.D. IMPRESSION: 1. Closed head injury without significant intracranial injury. 2. Patient ruled out for stroke. 3. Hypertension. 4. Hyperlipidemia. 5. Bipolar disorder. 6. Chronic obstructive pulmonary disease. 7. Multiple psychiatric admissions. PLAN: The patient will be discharged at your discretion. HISTORY OF PRESENT ILLNESS: Mr. Polanco is a 57-year-old man with a history of significant psychiatric problems. He apparently fell while he was in the shower and struck his head. I came into the ER to be evaluated, had a CT scan of the brain done which showed a questionable lesion in the cerebellar he misphere. He is admitted for further evaluation. His CT of the cervical spine did not reveal any ev idence of acute fracture or stenosis. Subsequent MRI of the brain shows no abnormalities. His lab w ork has been unremarkable. His vital signs have been stable. He is afebrile. PAST MEDICAL HISTORY: Hypertension, hyperlipidemia, bipolar disorder, COPD, and psychiatric problems . FAMILY HISTORY: Not obtainable. ALLERGIES: None. SOCIAL HISTORY: Unknown. REVIEW OF SYSTEMS: Not obtainable due to patient's uncooperativeness. PHYSICAL EXAMINATION: GENERAL: He is lying in bed and appearing to be asleep. VITAL SIGNS: Stable. He is afebrile. HEENT: Cranium normocephalic and atraumatic. NEUROLOGIC: The patient was uncooperative with the exam and I could not really perform any detailed evaluation. There were no abnormal movements seen. All the imaging studies were reviewed. SUMMARY: The patient was admitted for a possible cerebellar lesion which appears to have been ruled out by MRI. He suffered a head injury in the bathroom and there is no significant intracranial injur y that needs to be addressed. He can be discharged home at your discretion.
[2017-12-19] MEDS ORDERED: Gabapentin 300 MG CAP PO SCH (21:00)
[2017-12-19] MEDS ORDERED: Atorvastatin Calcium 20 MG TAB PO SCH (21:00)
[2017-12-19] MEDS ORDERED: Carvedilol 6.25 MG TAB PO SCH (21:00)
[2017-12-20] MEDS: traMADol HCl 50 MG TAB PO PRN (00:47)
[2017-12-20] MEDS: busPIRone HCl 10 MG TAB PO SCH ×2 (00:48→07:31)
[2017-12-20 01:26] LABS: Bilirubin Negative (Negative); Blood, Urine Negative (Negative); Clarity CLOUDY (Clear); Glucose, Urine (Dipstick) Negative (Negative); Leukocyte Small (Negative); Nitrite Negative (Negative); Protein, Urine (Dipstick) Negative (Neg-Trace); Specific Gravity, Urine 1.019 (1.002-1.036); Urobilinogen 0.2 mg/dL (0.2-1.0); pH, Urine 6.5 (5.0-9.0)
[2017-12-20 01:29] LABS: Bacteria/HPF 2+ HPF (None Seen); Hyaline Casts/LPF 0-3 HYALINE CAST LPF (0-3 Hyaline); RBC/HPF None Seen HPF (0-3); Squamous Epithelial 0-3 HPF (0-3); Yeast-AUWi Flag 6.3 (0-25.0)
[2017-12-20 01:35] LABS: Amphetamine Not Detected (NotDetected); Barbiturates Screen Not Detected (NotDetected); Benzodiazepine Screen Not Detected (NotDetected); Cocaine Metabolite Screen Detected (NotDetected); Medtox Control Line Valid? VALID (VALID); Medtox Reader # READER 4; Methadone Not Detected (NotDetected); Methamphetamine Not Detected (NotDetected); Opiate Screen Not Detected (NotDetected); Oxycodone Screen Not Detected (NotDetected); Phencyclidine (PCP) Not Detected (NotDetected); THC/Cannabinoid Screen Not Detected (NotDetected); Tricyclic Screen Detected (NotDetected)
[2017-12-20 01:41] LABS: Renal Epithelial None Seen HPF (0-3); Transitional Epithelial NONE SEEN HPF (0-3)
[2017-12-20 06:37] LABS: ALT (SGPT) 17 U/L (8-55); AST (SGOT) 18 U/L (5-34); Albumin 3.7 g/dL (3.5-5.0); Alkaline Phosphatase 91 U/L (40-150); Anion Gap 7 mmol/L (10-20); BUN (Urea Nitrogen) 22 mg/dL (8.4-25.7); Bilirubin, Total 0.3 mg/dL (0.2-1.2); Calc. Creatinine Clearance 60 mL/min (70-130); Calcium 8.7 mg/dL (7.8-10.44); Carbon Dioxide 24 mmol/L (22-29); Chloride 110 mmol/L (98-107); Estimated GFR-MDRD 50; Globulin 2.7 g/dL (2.4-3.5); Glucose 76 mg/dL (70-105); Potassium 3.9 mmol/L (3.5-5.1); Protein, Total 6.4 g/dL (6.0-8.3); Sodium 137 mmol/L (136-145)
[2017-12-20] MEDS: Mometasone/Formoterol 120 PUFF INHALER INH SCH (07:53)
[2017-12-20 07:56] VITALS: BP 135/85; TEMP 97.3
[2017-12-20] MEDS ORDERED: ULORIC 40 MG PO SCH (09:00)
[2017-12-20] MEDS ORDERED: FLUoxetine HCl 20 MG CAP PO SCH (09:00)
[2017-12-20] MEDS ORDERED: Venlafaxine HCl XR 75 MG CAP PO SCH (09:00)
[2017-12-20] MEDS ORDERED: OLANZapine 5 MG TAB PO SCH (09:00)
[2017-12-20] MEDS ORDERED: CeleCOXIB 100 MG CAP PO SCH (09:00)
[2017-12-20] MEDS ORDERED: TRAMADOL 200 MG PO SCH (09:00)
[2017-12-20] MEDS ORDERED: Tamsulosin HCl 0.4 MG CAP PO SCH (09:00)
[2017-12-23] MEDS ORDERED: hydrOXYzine 25 MG TAB PO SCH (09:00)
[2017-12-26] MEDS ORDERED: Ergocalciferol 1.25 MG(50,000 UNITS) CAP PO SCH (09:00)
== END 2017-12-20 10:46 | disposition home or self-care (01) | DRG 914 ==
LOC: ERS 08:37 → 2SE 10:17
PROVIDERS: ADMIT Specialist; ATTEND Specialist
DX: S09.90XA Unspecified injury of head, initial encounter (principal); F20.9 Schizophrenia, unspecified; E78.5 Hyperlipidemia, unspecified; I10 Essential (primary) hypertension; F31.9 Bipolar disorder, unspecified; J44.9 Chronic obstructive pulmonary disease, unspecified; F14.10 Cocaine abuse, uncomplicated; F41.9 Anxiety disorder, unspecified; G89.22 Chronic post-thoracotomy pain; M54.9 Dorsalgia, unspecified; Z91.19 Patient's noncompliance with other medical treatment and regimen; Z87.442 Personal history of urinary calculi; F19.10 Other psychoactive substance abuse, uncomplicated
CPT/HCPCS: 36415; 70450; 70553; 72100; 72125; 72170; 80053; 80306; 81003; 81015; 85025; 93005

== ENCOUNTER 2017-12-28 19:03 | Emergency (ER) | payer MEDICARE ==
[2017-12-28 19:34] LABS: #Basophils 0.1 thou/uL (0.0-0.2); #Eosinphils 0.3 thou/uL (0.0-0.7); #Lymphocytes 1.6 thou/uL (1.20-3.40); #Monocytes 0.9 thou/uL (0.11-0.59); #Neutrophils 7.6 thou/uL (1.40-6.50); %Basophils 0.5 % (0.0-1.0); %Eosinophils 2.9 % (0.0-10.0); %Monocytes 8.5 % (0.0-10.0); Hemoglobin 13.3 g/dL (14.0-18.0); Mean Corpuscular HGB CONC 33.7 g/dL (32.0-36.0); Mean Corpuscular Hemoglobin 29.7 pg (27.0-31.0); Mean Corpuscular Volume 88.1 fl (80.0-94.0); Mean Platelet Volume 8.8 fL (7.4-10.4); Platelet Count 198 thou/uL (130-400); RBC Distribution Width 14.4 % (11.5-14.5); Red Blood Cell (RBC) Count 4.48 mill/uL (4.70-6.10); White Blood Cell (WBC) Count 10.4 thou/uL (4.8-10.8)
[2017-12-28 19:52] LABS: Anion Gap 12 mmol/L (10-20); BUN (Urea Nitrogen) 21 mg/dL (8.4-25.7); Calc. Creatinine Clearance 0 mL/min (70-130); Calcium 9.1 mg/dL (7.8-10.44); Carbon Dioxide 20 mmol/L (22-29); Chloride 113 mmol/L (98-107); Estimated GFR-MDRD 41; Glucose 108 mg/dL (70-105); Potassium 3.7 mmol/L (3.5-5.1); Sodium 141 mmol/L (136-145)
[2017-12-28] MEDS ORDERED: Acetaminophen 500 MG TAB ONE (19:52)
--- NOTE | 2017-12-28 20:29 | RAD ---
FRONTAL RADIOGRAPH PELVIS 12/28/17 COMPARISON: None. HISTORY: Pain. FINDINGS: There is extensive postoperative hardware involving the left hemipelvis including screws traversing t he left sacroiliac joint and extensive hardware associated with the acetabulum on the left. An old fr acture of the inferior pubic ramus and the medial acetabulum noted on the left. Neither hip appears d islocated. No widening of the sacroiliac joints or pubic symphysis. No displaced fracture noted. IMPRESSION: Extensive postoperative changes involving prior fractures of the left hemipelvis. No radiographic mari dence of acute abnormality. POS: [facility]
== END 2017-12-28 23:17 | disposition home or self-care (01) ==
LOC: ERS 19:03
DX: R53.1 Weakness (principal); I12.9 Hypertensive chronic kidney disease with stage 1 through stage 4 chronic kidney disease, or unspecified chronic kidney disease; N18.9 Chronic kidney disease, unspecified; E78.5 Hyperlipidemia, unspecified; J44.9 Chronic obstructive pulmonary disease, unspecified; F31.9 Bipolar disorder, unspecified; F41.9 Anxiety disorder, unspecified; F20.9 Schizophrenia, unspecified; F17.210 Nicotine dependence, cigarettes, uncomplicated; Z79.899 Other long term (current) drug therapy
CPT/HCPCS: 36415; 72170; 80048; 85025; 93005; 94760; 96360; 99406

== ENCOUNTER 2018-03-13 14:11 | Emergency (ER) | payer MEDICARE ==
[2018-03-13] MEDS ORDERED: Ketorolac Tromethamine 30 MG/ML VIAL ONE (14:50)
--- NOTE | 2018-03-13 15:04 | RAD ---
RADIOGRAPH RIGHT LEG TIBIA FIBULA TWO VIEWS: History: 57-year-old male with traumatic right leg pain. FINDINGS: There is no evidence of fracture, periostitis, osteolytic or osteoblastic lesion, or permeative lesio n involving the tibia or fibula. IMPRESSION: Negative. POS: [facility]
--- NOTE | 2018-03-15 12:15 | EKG ---
Test Reason : Blood Pressure : / mmHG Vent. Rate : 104 BPM Atrial Rate : 104 BPM P-R Int : 124 ms QRS Dur : 110 ms QT Int : 378 ms P-R-T Axes : 049 -58 032 degrees QTc Int : 497 ms Sinus tachycardia Right bundle branch block Left anterior fascicular block Bifascicular block Abnormal ECG Confirmed by FARHAN HICKS, BARRY ([id number]), slot editor ALEX SALMERON ([id number]) on 03/15/2018 12:15:40 PM Referred By: Confirmed By:BARRY REAL MD
== END 2018-03-13 15:35 | disposition home or self-care (01) ==
LOC: ERS 14:11
DX: S80.811A Abrasion, right lower leg, initial encounter (principal); M79.662 Pain in left lower leg; I10 Essential (primary) hypertension; E78.5 Hyperlipidemia, unspecified; J44.9 Chronic obstructive pulmonary disease, unspecified; F41.9 Anxiety disorder, unspecified; F31.9 Bipolar disorder, unspecified; F17.210 Nicotine dependence, cigarettes, uncomplicated; Z79.899 Other long term (current) drug therapy; W19.XXXA Unspecified fall, initial encounter
CPT/HCPCS: 93005; 96374; J1885

== ENCOUNTER 2019-01-16 01:37 | Emergency (ER) | payer MEDICARE ==
[2019-01-16 02:16] LABS: #Basophils 0.1 thou/uL (0.0-0.2); #Eosinphils 0.2 thou/uL (0.0-0.7); #Lymphocytes 3.1 thou/uL (1.20-3.40); #Monocytes 0.8 thou/uL (0.11-0.59); #Neutrophils 6.4 thou/uL (1.40-6.50); %Basophils 0.8 % (0.0-1.0); %Lymphocytes 29.1 % (21.0-51.0); %Monocytes 7.7 % (0.0-10.0); %Neutrophils 60.4 % (42.0-75.0); Hemoglobin 12.2 g/dL (14.0-18.0); Mean Corpuscular HGB CONC 31.1 g/dL (32.0-36.0); Mean Corpuscular Hemoglobin 26.8 pg (27.0-31.0); Mean Corpuscular Volume 86.2 fL (78.0-98.0); Mean Platelet Volume 9.5 fL (7.4-10.4); Platelet Count 208 thou/uL (130-400); RBC Distribution Width 15.3 % (11.5-14.5); Red Blood Cell (RBC) Count 4.56 mill/uL (4.70-6.10); White Blood Cell (WBC) Count 10.6 thou/uL (4.8-10.8)
[2019-01-16 02:35] LABS: Albumin 3.4 g/dL (3.5-5.0)
[2019-01-16 02:37] LABS: Calcium 8.7 mg/dL (7.8-10.44); Chloride 111 mmol/L (98-107); Potassium 3.6 mmol/L (3.5-5.1); Sodium 139 mmol/L (136-145)
[2019-01-16 02:38] LABS: Globulin 3.3 g/dL (2.4-3.5); Glucose 151 mg/dL (70-105); Protein, Total 6.7 g/dL (6.0-8.3)
[2019-01-16 02:39] LABS: Carbon Dioxide 14 mmol/L (22-29)
[2019-01-16 02:40] LABS: Bilirubin, Total 0.3 mg/dL (0.2-1.2)
[2019-01-16 02:41] LABS: Alkaline Phosphatase 66 U/L (40-150); Calc. Creatinine Clearance 0 mL/min (70-130); Estimated GFR-MDRD 68
[2019-01-16 02:42] LABS: BUN (Urea Nitrogen) 14 mg/dL (8.4-25.7)
[2019-01-16 02:43] LABS: AST (SGOT) 41 U/L (5-34)
[2019-01-16 02:44] LABS: ALT (SGPT) 30 U/L (8-55)
[2019-01-16 03:36] LABS: Anion Gap 18 mmol/L (10-20)
--- NOTE | 2019-01-16 06:32 | RAD ---
CHEST PA AND LATERAL: INDICATIONS: Shortness of breath. COMPARISON: Prior exam dated 11/13/2017. FINDINGS: The lungs are clear. Heart size is normal. No acute osseous abnormality is evident. IMPRESSION: No acute cardiopulmonary abnormality. POS: [facility]
== END 2019-01-16 03:35 | disposition home or self-care (01) ==
LOC: ERS 01:37
DX: J44.1 Chronic obstructive pulmonary disease with (acute) exacerbation (principal); E11.40 Type 2 diabetes mellitus with diabetic neuropathy, unspecified; E78.5 Hyperlipidemia, unspecified; F31.9 Bipolar disorder, unspecified; F41.9 Anxiety disorder, unspecified; F20.9 Schizophrenia, unspecified; F17.210 Nicotine dependence, cigarettes, uncomplicated; I10 Essential (primary) hypertension; M81.0 Age-related osteoporosis without current pathological fracture; Z87.442 Personal history of urinary calculi; Z85.831 Personal history of malignant neoplasm of soft tissue; Z79.899 Other long term (current) drug therapy
CPT/HCPCS: 36415; 71046; 80053; 83880; 84484; 85025; 93005

== ENCOUNTER 2020-12-26 10:40 | Emergency (ER) | payer MEDICARE ==
[2020-12-26] MEDS ORDERED: Naloxone HCl 2 mg/2 ml Syringe ONE (11:14)
[2020-12-26] MEDS ORDERED: Acetaminophen 500 MG TAB ONE (12:09)
[2020-12-26 12:10] LABS: Bilirubin Negative (Negative); Blood, Urine 2+ (Negative); Clarity Clear (Clear); Glucose, Urine (Dipstick) Normal (Negative); Ketone, Urine Negative (Negative); Leukocyte 25 Leu/uL (Negative); Nitrite Negative (Negative); Protein, Urine (Dipstick) 100 mg/dL (Neg-Trace); RBC/HPF Greater than 50 HPF (0-3); Specific Gravity, Urine 1.033 (1.002-1.036); Squamous Epithelial 0-3 HPF (0-3); Urobilinogen 3 mg/dL (Less than 2)
[2020-12-26 12:11] LABS: Bacteria/HPF Rare-Few HPF (None Seen)
[2020-12-26 12:24] LABS: Cocaine Metabolite Screen Not Detected (NotDetected); Medtox Reader # READER 4; Methamphetamine Detected (NotDetected); Phencyclidine (PCP) Not Detected (NotDetected); THC/Cannabinoid Screen Detected (NotDetected)
[2020-12-26 12:25] LABS: Amphetamine Not Detected (NotDetected); Barbiturates Screen Not Detected (NotDetected); Benzodiazepine Screen Not Detected (NotDetected); Medtox Control Line Valid? VALID (VALID); Methadone Not Detected (NotDetected); Opiate Screen Not Detected (NotDetected); Oxycodone Screen Not Detected (NotDetected); Tricyclic Screen Not Detected (NotDetected)
[2020-12-26 12:28] LABS: #Eosinphils 0.2 thou/uL (0.0-0.7); #Lymphocytes 1.5 thou/uL (1.20-3.40); #Monocytes 0.7 thou/uL (0.11-0.59); %Basophils 0.4 % (0.0-1.0); %Lymphocytes 14.4 % (21.0-51.0); %Monocytes 6.5 % (0.0-10.0); %Neutrophils 76.7 % (42.0-75.0); Mean Corpuscular HGB CONC 30.4 g/dL (32.0-36.0); Mean Corpuscular Hemoglobin 23.2 pg (27.0-31.0); Mean Corpuscular Volume 76.2 fL (78.0-98.0); Mean Platelet Volume 9.5 fL (7.4-10.4); Platelet Count 217 thou/uL (130-400); RBC Distribution Width 16.4 % (11.5-14.5); Red Blood Cell (RBC) Count 4.74 mill/uL (4.70-6.10); White Blood Cell (WBC) Count 10.5 thou/uL (4.8-10.8)
[2020-12-26 12:54] LABS: ALT (SGPT) 7 U/L (8-55); AST (SGOT) 9 U/L (5-34); Acetaminophen Less than 6.0 mcg/mL (10.0-30.0); Albumin 3.5 g/dL (3.4-4.8); Alcohol Less than 10 mg/dL (Less than 10); Alkaline Phosphatase 69 U/L (40-110); Anion Gap 11 mmol/L (10-20); BUN (Urea Nitrogen) 15 mg/dL (8.4-25.7); Bilirubin, Total 0.2 mg/dL (0.2-1.2); CK (CPK) 132 U/L (30-200); Calc. Creatinine Clearance 0 mL/min (70-130); Calcium 6.8 mg/dL (7.8-10.44); Carbon Dioxide 26 mmol/L (23-31); Chloride 111 mmol/L (98-107); Globulin 2.6 g/dL (2.4-3.5); Glucose 104 mg/dL (80-115); Lipase 37 U/L (8-78); Potassium 3.7 mmol/L (3.5-5.1); Protein, Total 6.1 g/dL (5.8-8.1); Salicylate Less than 8.0 mg/dL (15.0-30.0); Sodium 144 mmol/L (136-145)
== END 2020-12-26 13:42 | disposition home or self-care (01) ==
LOC: ERS 10:40
DX: E86.0 Dehydration (principal); F15.90 Other stimulant use, unspecified, uncomplicated; M81.0 Age-related osteoporosis without current pathological fracture; I10 Essential (primary) hypertension; E78.5 Hyperlipidemia, unspecified; E78.00 Pure hypercholesterolemia, unspecified; G62.9 Polyneuropathy, unspecified; J44.9 Chronic obstructive pulmonary disease, unspecified; F17.210 Nicotine dependence, cigarettes, uncomplicated; Z79.899 Other long term (current) drug therapy; Z87.442 Personal history of urinary calculi; Z85.831 Personal history of malignant neoplasm of soft tissue
CPT/HCPCS: 36415; 36416; 51701; 70450; 71045; 80053; 80306; 80307; 81003; 81015; 82550; 83690; 84484; 85025; 85379; 93005; 96374; J2310

== ENCOUNTER 2023-11-29 00:26 | Inpatient (IN) | payer MEDICARE ==
[2023-11-29] MEDS ORDERED: Albuterol 2.5 MG (0.5 mL) NEB ONE ×2 (00:34→03:14)
[2023-11-29] MEDS ORDERED: Albuterol 2.5 MG (3 mL) NEB ONE ×2 (00:34→03:14)
[2023-11-29] MEDS ORDERED: Ipratropium/Albuterol 3 ML NEB ONE ×2 (00:34→14:03)
[2023-11-29 01:04] LABS: Actual Bicarbonate (HCO3v) 22.7 mEq/L (22-28); Base Excess -5.5 mEq/L (-2.0 to +3.0); Calcium, Ionized (venous) 1.16 mmol/L (1.16-1.32); Chloride (VBG) 100 mmol/L (98-106); Hematocrit-VBG 46 % (42.0-52.0); Hemoglobin (Hb) 15.5 g/dL (13.1-17.2); Potassium (VBG) 4.01 mmol/L (3.70-5.30); Sodium 139 mmol/L (133-146); pH (venous) 7.236 (7.32-7.43)
[2023-11-29 01:27] LABS: ALT (SGPT) 8 U/L (8-55); AST (SGOT) 11 U/L (5-34); Albumin 4.1 g/dL (3.4-4.8); Alkaline Phosphatase 73 U/L (40-110); Anion Gap 15 mmol/L (10-20); BUN (Urea Nitrogen) 12 mg/dL (8.4-25.7); Bilirubin, Total 0.3 mg/dL (0.2-1.2); Calc. Creatinine Clearance 0 mL/min (70-130); Calcium 9.2 mg/dL (7.8-10.44); Carbon Dioxide 25 mmol/L (23-31); Chloride 102 mmol/L (98-107); Estimated GFR 81; Glucose 113 mg/dL (80-115); Protein, Total 7.1 g/dL (5.8-8.1); Sodium 138 mmol/L (136-145)
[2023-11-29 01:30] LABS: Troponin I 0.016 ng/mL (< 0.028)
[2023-11-29 02:03] LABS: #Basophils 0.1 thou/uL (0.0-0.2); #Eosinphils 0.4 thou/uL (0.0-0.7); #Monocytes 1.1 thou/uL (0.11-0.59); #Neutrophils 10.3 thou/uL (1.40-6.50); %Basophils 0.6 % (0.0-1.0); %Eosinophils 3.1 % (0.0-10.0); %Lymphocytes 11.8 % (21.0-51.0); %Neutrophils 76.1 % (42.0-75.0); Hematocrit 44.3 % (42.0-52.0); Hemoglobin 14.6 g/dL (14.0-18.0); Mean Corpuscular Hemoglobin 28.8 pg (27.0-31.0); Mean Corpuscular Volume 87.4 fl (78.0-98.0); Mean Platelet Volume 11.5 fL (7.4-10.4); Platelet Count 210 10x3/uL (130-400); RBC Distribution Width 14.7 % (11.5-14.5); Red Blood Cell (RBC) Count 5.07 mill/uL (4.70-6.10); White Blood Cell (WBC) Count 13.6 10x3/uL (4.8-10.8)
[2023-11-29 03:05] LABS: Actual Bicarbonate (HCO3v) 22.5 mEq/L (22-28); Calcium, Ionized (venous) 1.03 mmol/L (1.16-1.32); Chloride (VBG) 102 mmol/L (98-106); Hematocrit-VBG 42 % (42.0-52.0); Hemoglobin (Hb) 14.4 g/dL (13.1-17.2); Potassium (VBG) 4.24 mmol/L (3.70-5.30); Sodium 136 mmol/L (133-146); pH (venous) 7.394 (7.32-7.43)
[2023-11-29] MEDS ORDERED: Acetaminophen 325 MG TAB PO PRN (04:59)
[2023-11-29] MEDS ORDERED: Ondansetron PF 4 MG/2 ML Vial IVP PRN (04:59)
[2023-11-29 06:17] VITALS: BMI 21.4
[2023-11-29] MEDS ORDERED: methylPREDNISolone Sod Succ 40 MG VIAL ONE ×2 (06:21→13:42)
[2023-11-29] MEDS ORDERED: cefTRIAXone (ROCEPHIN) 1 GM VIAL ONE (06:22)
[2023-11-29] MEDS ORDERED: Sodium Chloride 0.9% 100 ML ONE (06:22)
[2023-11-29] MEDS: methylPREDNISolone Sod Succ 40 MG VIAL IVP SCH (06:29)
[2023-11-29] MEDS: cefTRIAXone\\ROCEPHIN 1 GM in Sodium Chloride 0.9% 100 ML IVPB SCH (06:29)
[2023-11-29] MEDS ORDERED: Azithromycin 500 MG VIAL ONE (07:44)
[2023-11-29] MEDS: Azithromycin 500 MG in Sodium Chloride 0.9% 250 ML 250 ML IVPB SCH (08:10)
[2023-11-29] MEDS: Ipratropium/Albuterol 3 ML NEB NEB SCH (09:10)
[2023-11-29] MEDS ORDERED: Enoxaparin 40 MG (0.4 mL) SYRINGE ONE (10:05)
[2023-11-29] MEDS: Enoxaparin 40 MG (0.4 mL) SYRINGE SC SCH (11:48)
[2023-11-29 13:42] VITALS: BP 140/101; TEMP 97.9
[2023-11-29] MEDS ORDERED: Amlodipine 5 MG TAB ONE (14:43)
[2023-11-29] MEDS: Amlodipine 5 MG TAB PO SCH (14:46)
[2023-11-30] MEDS ORDERED: cefTRIAXone\\ROCEPHIN 1 GM in Sodium Chloride 0.9% 100 ML IVPB SCH (05:00)
== END 2023-11-29 14:45 | disposition short-term general hospital (02) | DRG 189 ==
LOC: ERS 00:26 → ERHOLD 04:32
PROVIDERS: ADMIT Internal Medicine; ATTEND Internal Medicine
DX: J96.01 Acute respiratory failure with hypoxia (principal); G93.41 Metabolic encephalopathy; J44.1 Chronic obstructive pulmonary disease with (acute) exacerbation; J96.02 Acute respiratory failure with hypercapnia; I10 Essential (primary) hypertension; E78.5 Hyperlipidemia, unspecified; M81.0 Age-related osteoporosis without current pathological fracture; G62.9 Polyneuropathy, unspecified; F17.210 Nicotine dependence, cigarettes, uncomplicated; Z79.899 Other long term (current) drug therapy; Z92.3 Personal history of irradiation; Z92.21 Personal history of antineoplastic chemotherapy; Z98.890 Other specified postprocedural states
CPT/HCPCS: 36415; 70450; 71045; 80053; 82805; 83880; 84484; 85025; 93005; 94640; 94644; 94660; J0456; J0696; J1650; J2920; J3490; J7050; J7611; J7620

== ENCOUNTER 2024-06-16 05:14 | Emergency (ER) | payer MEDICARE ==
[2024-06-16 05:40] LABS: #Basophils 0.06 10x3/uL (0.0-0.2); %Basophils 0.7 % (0.0-1.0); %Eosinophils 6.1 % (0.0-10.0); %Lymphocytes 13.1 % (21.0-51.0); %Monocytes 10.5 % (0.0-10.0); %Neutrophils 69.2 % (42.0-75.0); Hematocrit 43.3 % (42.0-52.0); Hemoglobin 13.5 g/dL (14.0-18.0); Mean Corpuscular HGB CONC 31.2 g/dL (32.0-36.0); Mean Corpuscular Hemoglobin 28.2 pg (27.0-31.0); Mean Corpuscular Volume 90.4 fL (78.0-98.0); Mean Platelet Volume 11.4 fL (7.4-10.4); Platelet Count 202 10x3/uL (130-400); RBC Distribution Width 14.7 % (11.5-14.5); Red Blood Cell (RBC) Count 4.79 mill/uL (4.70-6.10)
[2024-06-16 06:01] LABS: Troponin I Less than 0.010 ng/mL (< 0.028)
[2024-06-16 06:12] LABS: ALT (SGPT) 11 U/L (8-55); Albumin 3.4 g/dL (3.4-4.8); Alkaline Phosphatase 74 U/L (40-110); Anion Gap 11 mmol/L (10-20); BUN (Urea Nitrogen) 9 mg/dL (8.4-25.7); Bilirubin, Total 0.3 mg/dL (0.2-1.2); Calc. Creatinine Clearance 0 mL/min (70-130); Calcium 8.8 mg/dL (7.8-10.44); Carbon Dioxide 29 mmol/L (23-31); Chloride 109 mmol/L (98-107); Estimated GFR 60; Globulin 3.1 g/dL (2.4-3.5); Glucose 120 mg/dL (80-115); Potassium 4.4 mmol/L (3.5-5.1); Protein, Total 6.5 g/dL (5.8-8.1); Sodium 145 mmol/L (136-145)
[2024-06-16 06:52] LABS: AST (SGOT) 10 U/L (5-34)
== END 2024-06-16 07:07 | disposition home or self-care (01) ==
LOC: ERS 05:14
DX: J44.1 Chronic obstructive pulmonary disease with (acute) exacerbation (principal); I10 Essential (primary) hypertension; E78.00 Pure hypercholesterolemia, unspecified; Z55.6 Problems related to health literacy; Z79.899 Other long term (current) drug therapy
CPT/HCPCS: 36415; 71045; 80053; 83880; 84484; 85025; 93005